=== PATIENT | female | born 1965 | race Caucasian/White ===

== ENCOUNTER 2017-06-07 21:40 | Emergency (ER) | payer OTHER ==
[~2017-06-07] VITALS: Ht 162.6 cm; Wt 85.4 kg
[2017-06-07 21:43] VITALS: Ht 162.6 cm; Wt 85.4 kg
[2017-06-08 02:10] VITALS: BP 139/74
== END 2017-06-08 02:10 | disposition home or self-care (01) ==
LOC: ED 21:40
DX: J98.01 Acute bronchospasm (principal)
CPT/HCPCS: J7512; J7613